=== PATIENT | female | born 1935 | race Caucasian/White ===

== ENCOUNTER → 2023-08-08 14:19 | Outpatient (BNVA) | payer MEDICAID, SELFPAY | PROVIDERS: PCP Physician Assistant; Visit Provider Internal Medicine Cardiovascular Disease | DX: I25.10 Atherosclerotic heart disease of native coronary artery without angina pectoris (principal); E78.2 Mixed hyperlipidemia; I65.22 Occlusion and stenosis of left carotid artery; I10 Essential (primary) hypertension; I34.0 Nonrheumatic mitral (valve) insufficiency; I77.9 Disorder of arteries and arterioles, unspecified; Z87.891 Personal history of nicotine dependence | CPT/HCPCS: 99214 ==